=== PATIENT | male | born 1930 | race Caucasian/White ===

== ENCOUNTER 2018-07-02 11:07 | Inpatient (IN) | payer MEDICARE ==
[2018-07-02] MEDS ORDERED: PROPOFOL 200 MG/20 ML VIAL ONE (11:35)
[2018-07-02] MEDS ORDERED: Dexamethasone 20 MG/5 ML VIAL ONE (11:35)
[2018-07-02] MEDS ORDERED: Ondansetron HCl/PF 4 MG/2 ML Vial ONE (11:35)
[2018-07-02] MEDS ORDERED: PHENYLEPHRINE-NS 100 MCG/ML 10 ML SYRINGE ONE (11:35)
[2018-07-02] MEDS ORDERED: ePHEDrine/0.9% NaCl/PF SYRINGE 50 mg/10 ml ONE (11:35)
[2018-07-02] MEDS ORDERED: Vecuronium 10 MG VIAL ONE (11:35)
[2018-07-02] MEDS ORDERED: Heparin 10,000 UNITS/ 10 ML VIAL ONE (11:35)
[2018-07-02] MEDS ORDERED: Glycopyrrolate 0.2 MG/ML 5 ML SYRINGE ONE (11:35)
[2018-07-02] MEDS ORDERED: Lidocaine 1% PF 5 ML VIAL ONE (11:35)
[2018-07-02] MEDS ORDERED: Fentanyl 100 MCG/2 ML VIAL ONE ×3 (12:17→14:13)
[2018-07-02 12:45] LABS: INR-International Normal Ratio 1.3; PTT 35.2 SEC (22.9-36.1); Prothrombin Time 15.9 SEC (12.0-14.7)
[2018-07-02 13:02] LABS: Hemoglobin 11.8 g/dL (14.0-18.0); Mean Corpuscular HGB CONC 32.9 g/dL (32.0-36.0); Mean Corpuscular Hemoglobin 39.3 pg (27.0-31.0); Mean Platelet Volume 8.1 fL (7.4-10.4); Platelet Count 296 thou/uL (130-400); RBC Distribution Width 13.3 % (11.5-14.5); Red Blood Cell (RBC) Count 3.01 mill/uL (4.70-6.10); White Blood Cell (WBC) Count 17.7 thou/uL (4.8-10.8)
[2018-07-02 13:03] LABS: Band 8 % (5-11); Eosinophils 1 % (0-10); Lymphocytes 6 % (21-51); MDiff Complete? YES; Macrocytosis MODERATE=16-30 cells (100X) (0-5/hpf); Monocytes 5 % (0-10); Neutrophil 77 % (42-75); PLT Morphology Comment Appears Adequate; Reactive Lymphocytes 2 % (0-10)
--- NOTE | 2018-07-02 13:52 | CON ---
DATE OF CONSULTATION: 07/02/2018 PRIMARY CARE PHYSICIAN: Dr. Blackman at the [facility]. REASON FOR ADMISSION: Transfer from [facility] for hand trauma. PRIMARY ATTENDING: Dr. Yusuf. REASON FOR CONSULT: Medical comanagement. HISTORY OF PRESENT ILLNESS: An 88-year-old male who has underlying history of hypertension, diabetes type 2, dyslipidemia as well as history of hematological malignancy, who initially went to [facility] after left hand injury. The patient got palmar aspect of all 5 left fingers (00:00). Subsequently, he was having significant amount of bleed, intensity of pain was about 8/10 when it started and subsequently he was having a lot of pain. The pain was constant and he was bleeding from volar surface of the hand. The patient was evaluated at [facility] and subsequently he was transferred to our hospital for surgical treatment. Dr. Yusuf accepted this patient and the patient is going to go for surgery and in preoperative area , we were consulted for medical management. surveillance system monitor was showing sinus bradycardia with normal rhythm. He did not have any chest pain, palpitation, shortness of breath. His pain was well controlled. His blood pressure was also well controlled. The patient's was present at bedside and his left hand is completely covered with a dressing. REVIEW OF SYSTEMS: Please see my HPI for pertinent positive and negative. All other review of system reviewed and negative except as mentioned in the HPI. Constitutional: Weight loss or gain, ability to conduct usual activities. Skin: Rash, itching. Eyes: Double vision, pain. ENT/Mouth: Nose bleeding, neck stiffness, pain, tenderness. Cardiovascular: Palpitations, dyspnea on exertion, orthopnea. Respiratory: Shortness of breath, wheezing, cough, hemoptysis, fever or night sweats. Gastrointestinal: Poor appetite, abdominal pain, heartburn, nausea, vomiting, constipation, or diarrhea. Genitourinary: Urgency, frequency, dysuria, nocturia. Musculoskeletal: Pain, swelling. Neurologic/Psychiatric: Anxiety, depression. Allergy/Immunologic: Skin rash, bleeding tendency. PAST MEDICAL HISTORY: The patient reports that he has hematological malignancy under remission, non-insulin dependent diabetes mellitus, sleep apnea, hypertension, benign enlargement of prostate, ? multiple myeloma. PAST SURGICAL HISTORY: Bilateral cataract surgery. PAST PSYCHIATRIC HISTORY: Reviewed and negative. ALLERGIES: PENICILLIN G. CURRENT HOME MEDICATIONS: The patient did not bring his medication. He brought pill bottle container so unable to verify his home medication, but we are going to call Dr. Blackman at the [place] [facility] to get the patient's medication list and will review. Once we verify the patient's home medication, then we will resume selected home medication. As per patient's remembrance, the patient is taking Proscar, tramadol, hydroxyurea, etc., but detailed list is not available at this point. SOCIAL HISTORY: The patient is . He denies any tobacco, alcohol or illicit drug abuse. FAMILY HISTORY: No strong family history of premature coronary artery disease, stroke or cancer. EMERGENCY ROOM COURSE: The patient was given gentamicin 80 mg and Ancef 1 gram , Tetanus toxoid 0.5 mL IM, fentanyl 50 mcg at [facility]. PHYSICAL EXAMINATION: VITAL SIGNS: Currently, blood pressure 149/62, pulse 64, respiratory rate 18, temperature 98.6, saturation 95% on room air, weight 104.3 kilograms. GENERAL: The patient is currently alert, awake, no obvious acute distress. HEAD: Normocephalic, atraumatic. EYES: Pupils round, reactive to light. Extraocular muscle intact. ENT: Oropharynx within normal limits. Moist mucous membranes. No oral lesion , no pharyngeal erythema, no exudate. NECK: Supple, no JVD, no thyromegaly, no carotid bruit, no jugular venous distention. LUNGS: Clear to auscultation without any rhonchi or rales. CARDIAC: S1, S2 regular without any murmur. ABDOMEN: Soft, bowel sounds present, nontender, nondistended. No organomegaly , no mass, no suprapubic tenderness. BACK: Unremarkable, no CVA tenderness. EXTREMITIES: Upper extremity: Left hand is covered with a dressing. As per report, the patient has laceration and palmar aspect of all 5 fingers. Capillary refill greater than 2 seconds on the left side as per ER report. I could not examine her left because the patient's left hand is completely covered with a dressing. Right hand is within normal limits. Lower extremity within normal limits. No edema. Good distal pulsation. SKIN: No skin rash. HEMATOLOGICAL: No lymphadenopathy. PSYCHIATRIC: Normal affect. NEUROLOGIC: Nonfocal examination. SIGNIFICANT LABORATORY DATA: CBC: WBC 17.7, hemoglobin 11.8, platelet 296, MCV 120.0 with bandemia. INR 1.3. BMP: Sodium 140, potassium 4.5, chloride 107, carbon dioxide 23, anion gap 15, BUN 21, creatinine 1.27, calcium 9.1. ASSESSMENT AND PLAN: 1. Left hand injury after trauma with a table saw. The patient is admitted under hand surgeon. The patient is planned for surgery later on today. 2. Preoperative clearance. The patient is medically cleared for surgery. The patient does not have any angina. His electrocardiogram is in sinus rhythm. His blood pressure is acceptable. His lung examination and his exercise tolerance is within normal limits. The patient is medically clear for surgery. 3. History of hematological malignancy under remission with ? history of multiple myeloma. 4. Microcytic anemia, likely related with hydroxyurea. 5. Leukocytosis with bandemia, likely related with hand injury. 6. Diabetes type 2. 7. Hypertension. 8. Dyslipidemia. 9. Benign enlargement of prostate. PLAN: 1. The patient will be will be admitted under Dr. Paramjit Aguirre. The patient is planned for surgery later on today. The patient is medically cleared for surgery. We will verify the patient's home medication with primary care physician's office and we will start selected home medication. Hyperglycemia protocol treatment will be initiated. We will use p.r.n. basis blood pressure medication as well. We will repeat labs tomorrow. His pain will be controlled with pain medication with narcotics. We will add folic acid and vitamin B12 therapy on his regimen. 2. Deep venous thrombosis prophylaxis. SCD boots. No Lovenox because of bleeding from the hand after injury. 3. Gastrointestinal prophylaxis, Protonix 40 mg p.o. daily. CODE STATUS: The patient is FULL CODE. The patient's is surrogate decision maker. Disposition plan based on clinical course. We are expecting patient's stay in hospital more than 2 midnights. After surgery, the patient will need pain control and wound care. YUE
[2018-07-02 14:02] LABS: Anion Gap 7 mmol/L (10-20); BUN (Urea Nitrogen) 21 mg/dL (8.4-25.7); Calc. Creatinine Clearance 0 mL/min (70-130); Calcium 7.9 mg/dL (7.8-10.44); Carbon Dioxide 25 mmol/L (23-31); Chloride 108 mmol/L (98-107); Estimated GFR-MDRD 57; Glucose 204 mg/dL (83-110); Potassium 4.8 mmol/L (3.5-5.1); Sodium 135 mmol/L (136-145)
[2018-07-02] MEDS ORDERED: Midazolam HCl 2 mg/2 ml Vial ONE (14:08)
[2018-07-02] MEDS ORDERED: Bacitracin Zinc Ointment 30 gm TUBE ONE (14:10)
[2018-07-02] MEDS ORDERED: Hetastarch 6% 500 ML 500 ML ONE (14:10)
[2018-07-02] MEDS ORDERED: Lidocaine 2% 10 ML INJ ONE ×2 (14:10→14:18)
[2018-07-02] MEDS ORDERED: Thrombin 5000 UNITS/5 ML VIAL ONE (14:10)
[2018-07-02] MEDS ORDERED: Bupivacaine PF 0.5% 30 ML VIAL ONE (14:10)
[2018-07-02] MEDS ORDERED: Ropivacaine 0.2% HCl/PF 20 ML ONE (14:10)
[2018-07-02] MEDS ORDERED: Heparin 10,000 UNITS/1 ML VIAL ONE ×2 (14:12→20:12)
[2018-07-02] MEDS ORDERED: Lidocaine 1% (PF) 30 ML VIAL ONE (14:18)
[2018-07-02] MEDS ORDERED: Sodium Chloride 0.9% 0 ML ONE (14:20)
[2018-07-02 14:36] LABS: Hemoglobin 11.2 g/dL (14.0-18.0); Mean Corpuscular HGB CONC 33.9 g/dL (32.0-36.0); Mean Corpuscular Hemoglobin 40.4 pg (27.0-31.0); Mean Platelet Volume 7.7 fL (7.4-10.4); Platelet Count 302 thou/uL (130-400); RBC Distribution Width 13.1 % (11.5-14.5); Red Blood Cell (RBC) Count 2.76 mill/uL (4.70-6.10); White Blood Cell (WBC) Count 18.7 thou/uL (4.8-10.8)
[2018-07-02] MEDS ORDERED: Sodium Chloride 0.9% 50 ML ONE (14:49)
[2018-07-02] MEDS ORDERED: Phenylephrine HCL 10 MG/ML VIAL ONE ×2 (15:02→21:59)
[2018-07-02] MEDS ORDERED: Heparin 25,000 units/D5W 500 ML ONE (17:38)
[2018-07-03] MEDS ORDERED: Fentanyl 100 MCG/2 ML VIAL SLOW IVP PRN (00:12)
[2018-07-03] MEDS ORDERED: Promethazine HCl 25 MG/ML VIAL IM PRN (00:12)
[2018-07-03] MEDS ORDERED: Milk Of Magnesia 30 ML UDCUP PO PRN ×2 (00:12→00:58)
[2018-07-03] MEDS ORDERED: Ondansetron HCl/PF 4 MG/2 ML Vial IV PRN (00:12)
[2018-07-03] MEDS ORDERED: traMADol HCl 50 MG TAB PO PRN (00:12)
[2018-07-03] MEDS ORDERED: Acetaminophen 325 MG TAB PO PRN ×2 (00:12→00:58)
[2018-07-03] MEDS ORDERED: HYDROcodone/Acetaminophen 5/325 mg Tablet PO PRN (00:12)
[2018-07-03] MEDS ORDERED: Communication Order-Pharmacy FS SCH (00:15)
[2018-07-03] MEDS ORDERED: TETANUS AND DIPHTHERIA TOX/PF 0.5 ML DISP.SYRIN IM SCH (00:15)
[2018-07-03 00:49] LABS: Mean Corpuscular HGB CONC 33.6 g/dL (32.0-36.0); Mean Corpuscular Hemoglobin 37.8 pg (27.0-31.0); Mean Platelet Volume 7.9 fL (7.4-10.4); Platelet Count 330 thou/uL (130-400); RBC Distribution Width 20.1 % (11.5-14.5); Red Blood Cell (RBC) Count 2.64 mill/uL (4.70-6.10)
[2018-07-03] MEDS ORDERED: Artificial Tears 18 DROP/0.9 ML EA EYE PRN (00:58)
[2018-07-03] MEDS ORDERED: Chloraseptic Spray 180 ml Bottle PO PRN (00:58)
[2018-07-03] MEDS ORDERED: Hydrocerin (Eucerin) Cream 120 gm Jar TOP PRN (00:58)
[2018-07-03] MEDS ORDERED: Diabetic Tussin 200 MG/10 ML UDCUP PO PRN (00:58)
[2018-07-03] MEDS ORDERED: Ondansetron HCl/PF 4 MG/2 ML Vial IVP PRN (00:58)
[2018-07-03] MEDS ORDERED: Ondansetron ODT 4 MG TAB PO PRN (00:58)
[2018-07-03] MEDS ORDERED: Loratadine 10 MG TAB PO PRN (00:58)
[2018-07-03] MEDS ORDERED: Dextrose 50% Abboject 50 ML SYRINGE SLOW IVP PRN (00:58)
[2018-07-03] MEDS ORDERED: Mag-Al 1200 mg/1200 mg/30 ML UDCUP PO PRN (00:58)
[2018-07-03] MEDS ORDERED: Loperamide HCl 2 MG CAP PO PRN (00:58)
[2018-07-03] MEDS ORDERED: Sodium Chloride 0.65% Nasal 44 ML BOT EA NARE PRN (00:58)
[2018-07-03] MEDS ORDERED: Senokot 8.6 MG TAB PO PRN (00:58)
[2018-07-03] MEDS ORDERED: hydrALAZINE 20 MG/ML VIAL SLOW IVP PRN (00:58)
[2018-07-03] MEDS ORDERED: Dextrose 5% in Water 1,000 ML IV PRN (00:58)
[2018-07-03] MEDS ORDERED: HumaLOG 300 UNITS/3 ML VIAL SC PRN (00:58)
[2018-07-03] MEDS ORDERED: Zolpidem Tartrate 5 MG TAB PO PRN (00:58)
[2018-07-03] MEDS: Clindamycin/D5W 900 MG in Premix Bag 1 BAG IVPB SCH ×3 (01:00→16:51)
[2018-07-03 01:08] LABS: Band 16 % (5-11); Lymphocytes 3 % (21-51); MDiff Complete? YES; Monocytes 3 % (0-10); Neutrophil 78 % (42-75)
[2018-07-03 01:14] VITALS: BMI 27.8
[2018-07-03] MEDS ORDERED: Famotidine 20 MG TAB PO SCH (01:15)
[2018-07-03] MEDS ORDERED: Heparin 25,000 units/D5W 500 ML IVPB SCH (04:00)
[2018-07-03] MEDS ORDERED: Sodium Chloride 0.9% 500 ML IV SCH (04:00)
[2018-07-03] MEDS: HumaLOG 300 UNITS/3 ML VIAL SC PRN ×2 (04:35→16:51)
[2018-07-03 04:52] LABS: ALT (SGPT) 9 U/L (8-55); AST (SGOT) 13 U/L (5-34); Albumin 2.7 g/dL (3.4-4.8); Alkaline Phosphatase 38 U/L (40-150); Anion Gap 13 mmol/L (10-20); BUN (Urea Nitrogen) 22 mg/dL (8.4-25.7); Bilirubin, Total 0.7 mg/dL (0.2-1.2); Calc. Creatinine Clearance 57 mL/min (70-130); Calcium 7.3 mg/dL (7.8-10.44); Carbon Dioxide 19 mmol/L (23-31); Chloride 111 mmol/L (98-107); Estimated GFR-MDRD 54; Globulin 1.6 g/dL (2.4-3.5); Glucose 201 mg/dL (83-110); Potassium 4.8 mmol/L (3.5-5.1); Protein, Total 4.3 g/dL (5.8-8.1); Sodium 138 mmol/L (136-145)
[2018-07-03 04:57] LABS: Band 9 % (5-11); Hemoglobin 9.2 g/dL (14.0-18.0); MDiff Complete? YES; Mean Corpuscular HGB CONC 33.9 g/dL (32.0-36.0); Mean Corpuscular Hemoglobin 38.1 pg (27.0-31.0); Mean Platelet Volume 7.8 fL (7.4-10.4); Monocytes 2 % (0-10); Neutrophil 89 % (42-75); Platelet Count 277 thou/uL (130-400); RBC Distribution Width 19.9 % (11.5-14.5)
[2018-07-03] MEDS ORDERED: Prevnar 13-Val Conj/PF 0.5 ML SYRINGE IM ONE (09:00)
[2018-07-03] MEDS: Aspirin 81 mg Enteric Coated Tablet PO SCH ×2 (10:02→20:27)
[2018-07-03] MEDS: Folic Acid 1 MG TAB PO SCH (10:03)
[2018-07-03] MEDS: Cyanocobalamin (Vitamin B-12) 1,000 MCG TAB PO SCH (10:04)
[2018-07-03] MEDS: Famotidine 20 MG TAB PO SCH ×2 (10:04→20:27)
--- NOTE | 2018-07-03 11:25 | PDOC.PN ---
- Subjective Encounter Start Date: 07/03/18 Encounter Start Time: 10:15 -: old records requested/rev Patient seen and examined. No new complaints. No overnight events pt is in ccu and getting heparin drip, vitals stable - Objective Resuscitation Status: Resuscitation Status FULL:Full Resuscitation MAR Reviewed: Yes Vital Signs & Weight: Vital Signs (12 hours) Temp Pulse Resp BP Pulse Ox 07/03/18 08:55 98 07/03/18 07:34 98.7 F 59 L 16 100 07/03/18 07:00 98.7 F 59 L 16 119/64 07/03/18 04:00 98.7 F 95 07/03/18 02:00 62 13 143/44 H 07/03/18 00:35 98.3 F 67 15 100 07/03/18 00:30 98.3 F 65 16 120/43 L 100 07/03/18 00:12 98 Weight Weight 211 lb 3.245 oz Most Recent Monitor Data Heart Rate from ECG 64 NIBP 100/39 NIBP BP-Mean 54 Respiration from ECG 23 SpO2 98 I&O: 07/02/18 07/03/18 07/04/18 06:59 06:59 06:59 Intake Total 734 310 Output Total 300 125 Balance 434 185 Result Diagrams: 07/03/18 04:00 07/03/18 03:30 Additional Labs: Accuchecks 07/03/18 04:21 POC Glucose 194 H EKG Reviewed by me: Yes (nsr) Phys Exam - Physical Examination Constitutional: NAD HEENT: PERRLA, moist MMs, sclera anicteric Neck: no JVD, supple Respiratory: no wheezing, no rales, no rhonchi Cardiovascular: RRR, no significant murmur, no rub Gastrointestinal: soft, non-tender, no distention, positive bowel sounds Musculoskeletal: no edema, pulses present left hand with dressing Neurological: non-focal, normal sensation, moves all 4 limbs Psychiatric: normal affect, A&O x 3 Skin: no rash, normal turgor Dx/Plan (1) Laceration of finger of left hand with complication Code(s): S61.412A - LACERATION WITHOUT FOREIGN BODY OF LEFT HAND, INIT ENCNTR Status: Acute (2) Hypoalbuminemia Code(s): E88.09 - OTH DISORDERS OF PLASMA-PROTEIN METABOLISM, NEC Status: Acute (3) Leucocytosis Code(s): D72.829 - ELEVATED WHITE BLOOD CELL COUNT, UNSPECIFIED Status: Acute (4) BPH (benign prostatic hyperplasia) Code(s): N40.0 - BENIGN PROSTATIC HYPERPLASIA WITHOUT LOWER URINRY TRACT SYMP Status: Chronic (5) Diabetes type 2, controlled Code(s): E11.9 - TYPE 2 DIABETES MELLITUS WITHOUT COMPLICATIONS Status: Chronic (6) Dyslipidemia Code(s): E78.5 - HYPERLIPIDEMIA, UNSPECIFIED Status: Chronic (7) Hypertension Code(s): I10 - ESSENTIAL (PRIMARY) HYPERTENSION Status: Chronic (8) Macrocytic anemia Code(s): D53.9 - NUTRITIONAL ANEMIA, UNSPECIFIED Status: Chronic - Plan cont current plan of care, continue antibiotics * continue clindamycin * continue heparin drip * once we verify his home medication, we will resume selected home meds * medication reviewed as below * symptomatic treatment * surgical care as per hand surgeon. Review of Systems - Review of Systems Eyes: negative: Pain, Vision Change, Conjunctivae Inflammation, Eyelid Inflammation, Redness, Other ENT: negative: Ear Pain, Ear Discharge, Nose Pain, Nose Discharge, Nose Congestion, Mouth Pain, Mouth Swelling, Throat Pain, Throat Swelling, Other Respiratory: negative: Cough, Dry, Shortness of Breath, Hemoptysis, SOB with Excertion, Pleuritic Pain, Sputum, Wheezing Cardiovascular: negative: chest pain, palpitations, orthopnea, paroxysmal nocturnal dyspnea, edema, light headedness, other Gastrointestinal: negative: Nausea, Vomiting, Abdominal Pain, Diarrhea, Constipation, Melena, Hematochezia, Other Genitourinary: negative: Dysuria, Frequency, Incontinence, Hematuria, Retention , Other Musculoskeletal: negative: Neck Pain, Shoulder Pain, Arm Pain, Back Pain, Hand Pain, Leg Pain, Foot Pain, Other Skin: negative: Rash, Lesions, Branden, Bruising, Other - Medications/Allergies Allergies/Adverse Reactions: Allergies Allergy/AdvReac Type Severity Reaction Status Date / Time penicillin G Allergy Intermediate Rash Verified 07/03/18 01:19 Medications: Current Medications Acetaminophen (Tylenol) 650 mg PO Q4H PRN PRN Reason: Headache/Fever or Pain Hydrocodone Bitart/Acetaminophen (Russell 5/325) 1 tab PO Q4H PRN PRN Reason: Moderate Pain (4-6) Al Hydroxide/Mg Hydroxide (Maalox) 30 ml PO Q6H PRN PRN Reason: Heartburn or Indigestion Artificial Tears (Tears Naturale) 0 drop EA EYE PRN PRN PRN Reason: Dry Eyes Aspirin (Ecotrin) 81 mg PO BID [facility] Last Admin: 07/03/18 10:02 Dose: 81 mg Cyanocobalamin (Vitamin B-12) 1,000 mcg PO DAILY [facility] Last Admin: 07/03/18 10:04 Dose: 1,000 mcg Dextrose/Water (Dextrose 50%) 25 gm SLOW IVP PRN PRN PRN Reason: Hypoglycemia Emollient Cream (Hydrocerin Cream) 0 gm TOP BIDPRN PRN PRN Reason: Dry Skin Famotidine (Pepcid) 20 mg PO BID [facility] Last Admin: 07/03/18 10:04 Dose: 20 mg Fentanyl (Sublimaze) 50 mcg SLOW IVP Q30M PRN PRN Reason: Severe breakthrough pain Folic Acid (Folvite) 1 mg PO DAILY [facility] Last Admin: 07/03/18 10:03 Dose: 1 mg Glucagon (Glucagon) 1 mg IM PRN PRN PRN Reason: Hypoglycemia Guaifenesin (Robitussin Sf) 200 mg PO Q4H PRN PRN Reason: Cough Hydralazine HCl (Apresoline) 10 mg SLOW IVP Q4H PRN PRN Reason: Systolic BP > 180 Clindamycin Phosphate/Dextrose (900 mg/ Device) 50 mls @ 100 mls/hr IVPB 0100, 0900,1700 [facility] Stop: 07/05/18 01:01 Last Admin: 07/03/18 10:02 Dose: 50 mls Hetastarch/Sodium Chloride (Hespan) 500 mls @ 30 mls/hr IVPB INF [facility] Dextrose/Water (D5w) 1,000 mls @ 0 mls/hr IV .Q0M PRN PRN Reason: Hypoglycemia Sodium Chloride (Normal Saline 0.9%) 500 mls @ 0 mls/hr IV .Q0M CASE Heparin Sodium/Dextrose (Heparin 25,000 Units/D5w 500 Ml) 500 mls @ 4 mls/hr IVPB [facility]F [facility] Insulin Human Lispro (Humalog) 0 units SC .MODERATE SLIDING SC PRN PRN Reason: Moderate Correctional Scale Last Admin: 07/03/18 04:35 Dose: 2 unit Insulin Human Lispro (Humalog) 0 units SC .BEDTIME SLIDING SC PRN PRN Reason: Bedtime Correctional Scale Loperamide HCl (Imodium) 2 mg PO PRN PRN PRN Reason: Diarrhea/Loose Stools Loratadine (Claritin) 10 mg PO DAILYPRN PRN PRN Reason: Sinus Symptoms Magnesium Hydroxide (Milk Of Magnesium) 30 ml PO DAILYPRN PRN PRN Reason: Constipation Morphine Sulfate (Morphine) 2 mg SLOW IVP Q2H PRN PRN Reason: Moderate Pain (4-6) Ondansetron HCl (Zofran Odt) 4 mg PO Q6H PRN PRN Reason: Nausea/Vomiting Ondansetron HCl (Zofran) 4 mg IVP Q6H PRN PRN Reason: Nausea/Vomiting Phenol (Chloraseptic [place] 180 Ml Bot) 0 ml PO PRN PRN PRN Reason: Sore Throat Promethazine HCl (Phenergan) 12.5 mg IM Q4H PRN PRN Reason: Nausea Senna (Senokot) 2 tab PO HSPRN PRN PRN Reason: Constipation Sodium Chloride (Flush - Normal Saline) 10 ml IVF PRN PRN PRN Reason: Saline Flush Sodium Chloride ([place] Nasal [place] 0.65%) 0 ml EA NARE QIDPRN PRN PRN Reason: Nasal Congestion Tramadol HCl (Ultram) 50 mg PO Q6H PRN PRN Reason: Mild Pain (1-3) Zolpidem Tartrate (Ambien) 5 mg PO HSPRN PRN PRN Reason: Insomnia
[2018-07-03] MEDS: Hetastarch 6% 500 ML 500 ML IVPB SCH ×2 (11:39→21:14)
[2018-07-03] MEDS ORDERED: Digoxin 0.5 MG/2 ML AMP ONE (14:14)
[2018-07-03] MEDS ORDERED: Digoxin 0.5 MG/2 ML AMP SLOW IVP SCH (14:15)
--- NOTE | 2018-07-03 15:41 | PRG ---
DATE OF SERVICE: 07/03/2018 SUBJECTIVE: The patient is seen and examined at bedside. Patient has narrow complex supraventricula r tachycardia. Patient is asymptomatic. He is saturating normal. His blood pressure systolic, 75 s ystolic. He is given digoxin earlier and repeat digoxin loading dose is also ordered. His cardiac e xamination is unremarkable. If this patient does not recover with digoxin, then he will need discont inue cardioversion. Dr. Smith notified. He may need electrophysiologic evaluation when stable. We will check TSH, free T4, cardiac enzyme and BNP tomorrow with morning labs.
[2018-07-03] MEDS ORDERED: Amiodarone In Dextrose 200 ML IVPB SCH (16:00)
[2018-07-03] MEDS: Amiodarone HCl 450 MG, Admixture Fee 1 EACH in Dextrose 5% in Water 250 ML IVPB SCH (16:16)
--- NOTE | 2018-07-03 16:33 | CON ---
DATE OF CONSULTATION: 07/03/2018 REASON FOR CONSULTATION: SVT. HISTORY OF PRESENT ILLNESS: Mr. Garrett is a pleasant 88-year-old white gentleman who came to the [facility] for hand injury. He was taken to the OR by Dr. Yusuf with good results and he is in the ICU right now recuperating. He had a sinus bradycardia on admission, but recently he suddenly went into an SVT, heart rate in the 150s. He has remained there, blood pressure dropped a little bit to the 9 0s/40s when that happened. He feels well otherwise. He denies any palpitations. No chest pain, tig htness, pressure, no shortness of breath. PAST MEDICAL HISTORY: 1. Multiple myeloma. 2. Noninsulin dependent diabetes. 3. Sleep apnea. 4. Hypertension. 5. BPH. PAST SURGICAL HISTORY: 1. Bilateral cataract surgery. 2. Hand surgery yesterday. OUTPATIENT MEDICATIONS: Pending. He will bring the list of medications and we will consolidate. ALLERGIES: PENICILLIN. SOCIAL HISTORY: No alcohol, tobacco or drugs. FAMILY HISTORY: Noncontributory. REVIEW OF SYSTEMS: Twelve point review of systems is done and it is all negative except as stated in the history of present illness. PHYSICAL EXAMINATION: VITAL SIGNS: Temperature 98.6, pulse 59, respiratory rate 18, satting 100% on room air. GENERAL: Awake, alert, oriented x3, in no distress. HEENT: Normocephalic. NECK: Supple. LUNGS: Clear. CARDIOVASCULAR: Tachycardic in the 150s, but normal S1, S2, no S3, S4, no murmurs. ABDOMEN: Soft, positive bowel sounds. EXTREMITIES: No edema. Left hand is wrapped up to the elbow. SKIN: Warm and dry. LABORATORY WORK: Reviewed. White count 23, hemoglobin 9.2, hematocrit 27, platelet count of 277. C oags were unremarkable. Chemistries were unremarkable except for calcium 7.3, albumin of 2.7, normal sodium and potassium. 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 ST changes suggestive of ischemia during his tachycardia. ASSESSMENT AND PLAN: Supraventricular tachycardia: He actually broke back to sinus rhythm when I wa s in the room with him. His blood pressure went nicely from 90s/40s, up to the 120s/60s when he was back in sinus rhythm. We will plan on starting on amiodarone drip and will hopefully to prevent him from going back into any supraventricular tachycardia. This could also be due to atrial flutter, but I do not see flutter waves on EKG. We will get thyroid studies. We will make sure he is on a beta levar. We will wait for his home medication before this happens as his baseline EKG on arrival. Nicolette carmichael was quite bradycardic in the 40s. Currently, he is sinus rhythm in the 90s. Thank you for letting us to participate in the care of your patient. We will follow.
[2018-07-03] MEDS: HYDROcodone/Acetaminophen 5/325 mg Tablet PO PRN (23:41)
--- NOTE | 2018-07-04 00:12 | CON ---
DATE OF CONSULTATION: 07/03/2018 HISTORY OF PRESENT ILLNESS: This is a pleasant 88-year-old male who cut his hand with a table saw. This has been surgically repaired. It was his left hand but got upon move all of his fingers. He subsequently was admitted to the intensive care unit. He is now on the Trauma Service. I was asked to see him, because his presence in the ICU. He developed supraventricular rhythm disturbance today has been seen by Dr. Smith. I was consulted the same time, he developed his tachycardia. PAST MEDICAL/SURGICAL HISTORY: Remarkable for diabetes, sleep apnea, hypertension, ? multiple myeloma, cataract surgery, BPH. ALLERGIES: PENICILLIN. SOCIAL HISTORY: He does not use tobacco, alcohol, or drugs. FAMILY HISTORY: Negative for lung disease in early age. REVIEW OF SYSTEMS: 10 point system review completed; otherwise negative that was stated in the present illness. He has minimal hand pain surprisingly. PHYSICAL EXAMINATION: GENERAL: This is a pleasant 88-year-old male who cut his hand with a table saw. VITAL SIGNS: Blood pressure 113/45, heart rate 66, respiratory rate 22, oximetry is 92. HEENT: Pupils are equal. Sclerae is anicteric. NECK: Supple. LUNGS: Clear. HEART: Regular rate and rhythm. S1 and S2 are normal. ABDOMEN: Soft and nontender. EXTREMITIES: Without clubbing, cyanosis, or edema. The licensed master social worker arrived to evaluate him, he will back into sinus rhythm. LABORATORY DATA: White count is 23, hemoglobin 9.2, platelets 277. Sodium 138 , potassium 4.8, chloride 111, bicarbonate 19, BUN 22, creatinine 1.27, alkaline phosphatase 38, protein 4.3, albumin 2.7, glucose 194. IMPRESSION: 1. Status post large laceration to his hand, now surgically repaired 2. Multiple other medical problems, which are stable. PLAN: Transfer out of the critical care unit to telemetry bed is reasonable. This is a 70-minute consult with greater than 50% of the time spent on unit coordinating care. YUE
[2018-07-04] MEDS: Amiodarone HCl 450 MG, Admixture Fee 1 EACH in Dextrose 5% in Water 250 ML IVPB SCH (01:49)
[2018-07-04] MEDS: Clindamycin/D5W 900 MG in Premix Bag 1 BAG IVPB SCH ×4 (01:49→23:39)
[2018-07-04 04:59] LABS: CKMB 3.7 ng/mL (0-6.6); Troponin I 0.039 ng/mL (< 0.028)
[2018-07-04 05:13] LABS: Thyroid Stimulating Hormone 1.141 uIU/mL (0.35-4.94)
[2018-07-04 05:36] LABS: Free T4 (Free Thyroxine) 0.86 ng/dL (0.70-1.48)
[2018-07-04] MEDS ORDERED: Simethicone Chewable 80 MG TAB PO PRN (06:53)
[2018-07-04] MEDS ORDERED: traMADol HCl 50 MG TAB PO PRN (06:53)
[2018-07-04] MEDS: Hetastarch 6% 500 ML 500 ML IVPB SCH ×2 (06:56→23:39)
[2018-07-04] MEDS ORDERED: Fluticasone Propionate Nasal Spray 16 gm Bottle NASAL SCH (07:45)
--- NOTE | 2018-07-04 09:46 | PDOC.PN ---
- Subjective Encounter Start Date: 07/04/18 Encounter Start Time: 08:30 pt is doing well, he is on amiodaron drip, he is converted to NSR - Objective Resuscitation Status: Resuscitation Status FULL:Full Resuscitation MAR Reviewed: Yes Vital Signs & Weight: Vital Signs (12 hours) Temp Pulse Ox 07/04/18 07:00 98.2 F 07/04/18 06:15 95 07/04/18 04:00 98.4 F 95 07/04/18 00:00 98.3 F Weight Weight 211 lb 3.245 oz Most Recent Monitor Data Heart Rate from ECG 64 NIBP 110/48 NIBP BP-Mean 91 Respiration from ECG 21 SpO2 85 I&O: 07/03/18 07/04/18 07/05/18 06:59 06:59 06:59 Intake Total 734 3645 Output Total 300 2080 55 Balance 434 1565 -55 Result Diagrams: 07/03/18 04:00 07/03/18 03:30 Additional Labs: Accuchecks 07/04/18 07/03/18 07/03/18 06:18 20:33 16:48 POC Glucose 144 H 123 H 154 H 07/03/18 11:37 POC Glucose 122 H EKG Reviewed by me: Yes (nsr) Phys Exam - Physical Examination Constitutional: NAD HEENT: PERRLA, moist MMs, sclera anicteric Neck: no JVD, supple Respiratory: no wheezing, no rales, no rhonchi Cardiovascular: RRR, no significant murmur, no rub Gastrointestinal: soft, non-tender, no distention, positive bowel sounds Musculoskeletal: no edema, pulses present left upper extrimity with dressing Neurological: non-focal, normal sensation, moves all 4 limbs Psychiatric: normal affect, A&O x 3 Skin: no rash, normal turgor Dx/Plan (1) Laceration of finger of left hand with complication Code(s): S61.412A - LACERATION WITHOUT FOREIGN BODY OF LEFT HAND, INIT ENCNTR Status: Acute Comment: s/p surgical repair (2) Hypoalbuminemia Code(s): E88.09 - OTH DISORDERS OF PLASMA-PROTEIN METABOLISM, NEC Status: Acute (3) Leucocytosis Code(s): D72.829 - ELEVATED WHITE BLOOD CELL COUNT, UNSPECIFIED Status: Acute (4) BPH (benign prostatic hyperplasia) Code(s): N40.0 - BENIGN PROSTATIC HYPERPLASIA WITHOUT LOWER URINRY TRACT SYMP Status: Chronic (5) Diabetes type 2, controlled Code(s): E11.9 - TYPE 2 DIABETES MELLITUS WITHOUT COMPLICATIONS Status: Chronic (6) Dyslipidemia Code(s): E78.5 - HYPERLIPIDEMIA, UNSPECIFIED Status: Chronic (7) Hypertension Code(s): I10 - ESSENTIAL (PRIMARY) HYPERTENSION Status: Chronic (8) Macrocytic anemia Code(s): D53.9 - NUTRITIONAL ANEMIA, UNSPECIFIED Status: Chronic (9) Demand ischemia Code(s): I24.8 - OTHER FORMS OF ACUTE ISCHEMIC HEART DISEASE Status: Acute (10) Elevated brain natriuretic peptide (BNP) level Code(s): R79.89 - OTHER SPECIFIED ABNORMAL FINDINGS OF BLOOD CHEMISTRY Status : Acute (11) SVT (supraventricular tachycardia) Code(s): I47.1 - SUPRAVENTRICULAR TACHYCARDIA Status: Resolved - Plan cont current plan of care, plan discussed w/ family, continue antibiotics * continue antibiotics as per surgeon * post operative pain control * currently on amiodaron drip as per cardio, may be we can start BB and dc amiodaron drip * will get echo today * medication reviewed as below * symptomatic treatment * discussed with * will start his selected home medication. Review of Systems - Review of Systems Eyes: negative: Pain, Vision Change, Conjunctivae Inflammation, Eyelid Inflammation, Redness, Other ENT: negative: Ear Pain, Ear Discharge, Nose Pain, Nose Discharge, Nose Congestion, Mouth Pain, Mouth Swelling, Throat Pain, Throat Swelling, Other Respiratory: negative: Cough, Dry, Shortness of Breath, Hemoptysis, SOB with Excertion, Pleuritic Pain, Sputum, Wheezing Cardiovascular: negative: chest pain, palpitations, orthopnea, paroxysmal nocturnal dyspnea, edema, light headedness, other Gastrointestinal: negative: Nausea, Vomiting, Abdominal Pain, Diarrhea, Constipation, Melena, Hematochezia, Other Genitourinary: negative: Dysuria, Frequency, Incontinence, Hematuria, Retention , Other Musculoskeletal: Hand Pain. negative: Neck Pain, Shoulder Pain, Arm Pain, Back Pain, Leg Pain, Foot Pain, Other Skin: negative: Rash, Lesions, Branden, Bruising, Other - Medications/Allergies Allergies/Adverse Reactions: Allergies Allergy/AdvReac Type Severity Reaction Status Date / Time penicillin G Allergy Intermediate Rash Verified 07/03/18 01:19 Medications: Current Medications Acetaminophen (Tylenol) 650 mg PO Q4H PRN PRN Reason: Headache/Fever or Pain Hydrocodone Bitart/Acetaminophen ([place] 5/325) 1 tab PO Q4H PRN PRN Reason: Moderate Pain (4-6) Last Admin: 07/03/18 23:41 Dose: 1 tab Al Hydroxide/Mg Hydroxide (Maalox) 30 ml PO Q6H PRN PRN Reason: Heartburn or Indigestion Artificial Tears (Tears Naturale) 0 drop EA EYE PRN PRN PRN Reason: Dry Eyes Aspirin (Ecotrin) 81 mg PO BID [facility] Stop: 07/04/18 21:01 Last Admin: 07/03/18 20:27 Dose: 81 mg Aspirin (Ecotrin) 81 mg PO QAM [facility] Cholecalciferol (Vitamin D3) 2,000 units PO DAILY [facility] Cyanocobalamin (Vitamin B-12) 1,000 mcg PO DAILY [facility] Last Admin: 07/03/18 10:04 Dose: 1,000 mcg Dextrose/Water (Dextrose 50%) 25 gm SLOW IVP PRN PRN PRN Reason: Hypoglycemia Docusate Sodium (Colace) 100 mg PO DAILY [facility] Emollient Cream (Hydrocerin Cream) 0 gm TOP BIDPRN PRN PRN Reason: Dry Skin Famotidine (Pepcid) 20 mg PO BID [facility] Last Admin: 07/03/18 20:27 Dose: 20 mg Fentanyl (Sublimaze) 50 mcg SLOW IVP Q30M PRN PRN Reason: Severe breakthrough pain Finasteride (Proscar) 5 mg PO DAILY [facility] Fish Oil (Fish Oil) 1,000 mg PO DAILY [facility] Fluticasone Propionate (Flonase Nasal [place]) 0 gm NASAL DAILY [facility] Folic Acid (Folvite) 1 mg PO DAILY [facility] Last Admin: 07/03/18 10:03 Dose: 1 mg Furosemide (Lasix) 20 mg PO QAM [facility] Gabapentin (Neurontin) 400 mg PO DAILY [facility] Glipizide (Glucotrol Xl) 2.5 mg PO QAM[facility] Glucagon (Glucagon) 1 mg IM PRN PRN PRN Reason: Hypoglycemia Guaifenesin (Robitussin Sf) 200 mg PO Q4H PRN PRN Reason: Cough Hydralazine HCl (Apresoline) 10 mg SLOW IVP Q4H PRN PRN Reason: Systolic BP > 180 Clindamycin Phosphate/Dextrose (900 mg/ Device) 50 mls @ 100 mls/hr IVPB 0100, 0900,1700 [facility] Stop: 07/05/18 01:01 Last Admin: 07/04/18 01:49 Dose: 50 mls Hetastarch/Sodium Chloride (Hespan) 500 mls @ 30 mls/hr IVPB INF [facility] Last Admin: 07/04/18 06:56 Dose: 500 mls Dextrose/Water (D5w) 1,000 mls @ 0 mls/hr IV .Q0M PRN PRN Reason: Hypoglycemia Sodium Chloride (Normal Saline 0.9%) 500 mls @ 0 mls/hr IV .Q0M CASE Heparin Sodium/Dextrose (Heparin 25,000 Units/D5w 500 Ml) 500 mls @ 2 mls/hr IVPB INF CASE Amiodarone HCl 450 mg/Miscellaneous Medication 1 each/ Dextrose/Water 259 mls @ 0 mls/hr IVPB INF [facility]; Protocol Last Admin: 07/04/18 01:49 Dose: 259 mls Insulin Human Lispro (Humalog) 0 units SC .MODERATE SLIDING SC PRN PRN Reason: Moderate Correctional Scale Last Admin: 07/03/18 16:51 Dose: 2 unit Insulin Human Lispro (Humalog) 0 units SC .BEDTIME SLIDING SC PRN PRN Reason: Bedtime Correctional Scale Loperamide HCl (Imodium) 2 mg PO PRN PRN PRN Reason: Diarrhea/Loose Stools Loratadine (Claritin) 10 mg PO DAILYPRN PRN PRN Reason: Sinus Symptoms Magnesium Hydroxide (Milk Of Magnesium) 30 ml PO DAILYPRN PRN PRN Reason: Constipation Methocarbamol (Robaxin) 750 mg PO DAILY [facility] Morphine Sulfate (Morphine) 2 mg SLOW IVP Q2H PRN PRN Reason: Moderate Pain (4-6) Ondansetron HCl (Zofran Odt) 4 mg PO Q6H PRN PRN Reason: Nausea/Vomiting Ondansetron HCl (Zofran) 4 mg IVP Q6H PRN PRN Reason: Nausea/Vomiting (Hydroxyurea [Siklos (] 100 Mg) Hm Med) 0 each PO BID [facility] Phenol (Chloraseptic [place] 180 Ml Bot) 0 ml PO PRN PRN PRN Reason: Sore Throat Promethazine HCl (Phenergan) 12.5 mg IM Q4H PRN PRN Reason: Nausea Senna (Senokot) 2 tab PO HSPRN PRN PRN Reason: Constipation Simethicone (Mylicon Chewable) 160 mg PO PCHS PRN PRN Reason: Gas Pain Sodium Chloride (Flush - Normal Saline) 10 ml IVF PRN PRN PRN Reason: Saline Flush Sodium Chloride ([place] Nasal [place] 0.65%) 0 ml EA NARE QIDPRN PRN PRN Reason: Nasal Congestion Solifenacin (Vesicare) 5 mg PO DAILY CASE Tramadol HCl (Ultram) 50 mg PO Q6H PRN PRN Reason: Mild Pain (1-3) Tramadol HCl (Ultram) 50 mg PO QID PRN PRN Reason: Pain Zolpidem Tartrate (Ambien) 5 mg PO HSPRN PRN PRN Reason: Insomnia
[2018-07-04] MEDS: Aspirin 81 mg Enteric Coated Tablet PO SCH ×3 (11:02→21:11)
[2018-07-04] MEDS: Famotidine 20 MG TAB PO SCH ×2 (11:04→21:11)
[2018-07-04] MEDS: Cyanocobalamin (Vitamin B-12) 1,000 MCG TAB PO SCH (11:05)
[2018-07-04] MEDS: Furosemide 20 MG TAB PO SCH (11:05)
[2018-07-04] MEDS: Finasteride 5 MG TAB PO SCH (11:06)
[2018-07-04] MEDS: Docusate 100 MG CAP PO SCH (11:06)
[2018-07-04] MEDS: Folic Acid 1 MG TAB PO SCH (11:06)
[2018-07-04] MEDS: Gabapentin 400 MG CAP PO SCH (11:07)
[2018-07-04] MEDS: Fish Oil 1,000 MG CAP PO SCH (11:07)
[2018-07-04] MEDS: Methocarbamol 500 MG TAB PO SCH (11:08)
[2018-07-04] MEDS: Fluticasone Propionate Nasal Spray 16 gm Bottle NASAL SCH (11:10)
--- NOTE | 2018-07-04 14:25 | OP ---
PREOPERATIVE DIAGNOSES: Left thumb, index finger, middle finger, ring finger and small finger injuri es from a saw. Injures otherwise follows by finger based on postoperative diagnoses. POSTOPERATIVE DIAGNOSES: 1. Left thumb. A. Left thumb saw laceration, 5 cm with intact neurovascular bundles. B. Left thumb partial longitudinal flexor pollicis longus laceration and its insertion. 2. Injuries at the left index finger: A. Saw laceration 4 cm at the base of the proximal phalanx. 3. Open proximal phalanx fracture, approximately 30% of bone cortex violated with incomplete fractur e. 4. A2 alba laceration. 5. Flexor digitorum profundus laceration, zone 2. 6. Flexor digitorum superficialis laceration, zone 2. 7. Radial and ulnar digital nerve laceration proximal phalanx. 8. Radial and ulnar digital artery laceration. 9. Flexor sheath laceration. 10. Injury of long finger. A. A 3.5 cm proximal phalanx laceration. B. Proximal phalanx fracture approximately 20% cortical depth in sagittal view incomplete fracture. C. Partial A2 alba laceration. D. Flexor digitorum profundus laceration, zone 2. E. Flexor digitorum superficialis laceration, zone 2. F. Ulnar and radial digital nerve laceration. G. Ulnar and radial digital artery lacerations. 11. Injury of ring finger. A. A 3.5 cm laceration, very distal rami, ulnar aspect laceration one of three, but the other two ar e intact seen on neuroplasty. B. Flexor tendons intact digitorum profundus at the level of sheath laceration only. Ring finger, a 2.5 cm laceration. PROCEDURES PERFORMED: At the small finger: A. A 2.5 cm wound debridement. B. A 2.5 cm laceration closure. At the ring finger: A. Debridement of wound. B. Closure of wound 3 cm complex. C. Debridement of sheath. D. Irrigation of wound. E. Radial and ulnar digital nerve neuroplasty. At the thumb: A. Debridement of wound down to including the insertion. B. Flexor pollicis longus repair, approximately 50% laceration in the sagittal plane. C. Digital nerve neuroplasty microscopic thumb. At the index finger: A. Debridement of wound. B. Debridement of material associated open fracture. C. Open treatment of open fracture proximal phalanx. D. A2 alba partial laceration repair. E. Flexor digitorum superficialis laceration repair. F. Flexor digitorum profundus laceration repair. G. Radial digital nerve repair, microscopic. H. Ulnar digital nerve repair, microscopic. I. Ulnar digital artery repair, microscopic. J. Closure of wound, 3 cm, complex techniques. At the long finger: The exact same procedures were done at the long finger as were done at the index finger with the addition of both radial and ulnar artery repair, microscopic, and the laceration was 3 cm as well which was closed. Exact same procedure was done at the long finger as well as a ring f bro except 2 arteries microscopic repair. INDICATIONS: The patient had a saw contact. He is an 88-year-old male, 2 graduate of [employer], who was creating a gift of wood work for a great grandchild when the saw contacted em nd given palm lacerations at the digit listed above. It was evacuated after given antibiotics withou t debridement to our facility and we brought to the operating within 4 hours of his injury because he had no circulation visible and no flexor tendon function of the index and long finger preop. DESCRIPTION OF PROCEDURE: After successful general endotracheal anesthesia, the limb was prepped and draped. Tourniquet was inflated to 200 mmHg before prepping because of copious bleeding and this wa s the reason why he was taken to the operating room emergently and Dr. Yusuf canceled all other pr ocedures for the rest of the day in order to facilitate his emergency care. Then, the patient with the tourniquet inflated, we extended the wound on his thumb by 2 cm zigzag fas hion, the wound on the index finger about 3 cm proximal and a Marcio incision distally 1.5 cm, incisi on on the middle finger by 2 cm proximal and 1.5 cm distal and the wounds on the ring finger and smal l finger about 1 cm proximal. We performed debridement of the wound edges sequentially in each finge r using the forward techniques. A: Use of tenotomy scissor, [place] blade, 11 blade knife and a curet for the bone. B: Excisional technique. C. Use of Pulsavac, a total of 5 liters, approximately 1200 for digit and removed small aspects of d irt, but in general it was clean with minimal contamination due to depth include the bone of the inde x and long down to, but not including the bone on the other digits. Attention was also made to remove the jagged edges from some of the incision as well as to debride th e flexor tendon areas of the thumb, index and middle finger injury. Once before complete sequential debridement and completion of sequential irrigation of the wounds, we then finished our dissection, i dentified the patient's flexors pollicis longus laceration of thumb was transferred with the longitud inal plane and is almost alligator type or fish type open with deep one half intact, so it could be r epaired primarily. Radiographs revealed the fracture of the phalanges on the index and long finger w ere incomplete with over 45% of the cortex still intact, so debridement of fracture was part of the o pen treatment. We then began to repair after seeing via neuroplasty thumb that the primary rami distal were intact o n the radial and ulnar aspect, circulation was intact at the arch, and that the FPL was repairable, w e preserved the repair for later because we found also that there were two neurovascular bundles inta ct on the ring and small finger, only a sheath injury on the ring finger and there was no evidence of need for microvascular procedure on these two digits. We then turned attention to the two digits wh ere we found the complete laceration of the artery loss and nerve. First, we debrided, found the 2 tendon ends, first index finger, brought them into the primary wound, debrided the ends, 1 mm because they were so jagged, and then began to repair by first with the flex or digitorum superficialis using for each half of this tendon 2 loop sutures. Then, once we brought the loop suture together through the alba system, we repaired the back wall with a running locked 6 -0 chromic, we then prepared the closure defect by tying in appropriate manner to complete the Robert-Patricia nath 8-strand technique here. We performed the same technique on the flexion digitorum profundus secon dly with same debridement to remove the mop end-type appearance, oversewed it with a 6-0 Prolene and then tighten the 2 knots. On both of these two tendons, we then ran the 6-0 Prolene on the opposite side of the tendon and tied to give an excellent coaptation as well as excellent pullout strength kika t there was no effect. I could passively extend and there is no abnormality. On the index finger, o nce we had done this, I repaired the half of the A1 alba that had been cut as well. This was done with a [id number] multiple Prolenes. under tendon sheath flexion. We then turned attention to the long finger and performed the same flexor digitorum superficialis fir st, Jones-Carole techniques multiple strand tendon repair, first on the flexure digitorum superficialis w ith the 6-0 Prolene oversew and then on flexor digitorum profundus with the 6-0 oversew, running tend on repair. Again, there was no gap formation seen with full extension. We debrided some of the castellon th that was nonviable, maintained the alba that was still there without repair and then realized we finished the tendinous portion. We brought the microscope to the field. While it was being draped and prepped, I found to be a soft tissue dissection all 4 digital nerves, radial, ulna, index and long finger, all four digital arterie s, and found that none of these were intact after the injury. Then we proceeded with the microscope on the field, we placed through back around additional neurovascular bundle beginning on the ulnar va scular bundle of the middle finger, repaired the radial digital nerve and then ulnar digital nerve us ing 8-0 Nurolon suture, 4 suture epineural repair. Then, we released the tourniquet, which had been done 2 hours in long before we started the microvascular, and prepared the artery under microscope on both sides because this finger was white without circulation, whatsoever. We then used a coapting v essel cardoza to repair the ulna and then the radial digital artery to the long finger/middle finger w ith 9-0 nylon suture. Afterwards, bolus of heparin was given, before we had done the procedure, we h ad copious bleeding from the end closest to the and after placing six sutures 9-0, each of the 2 repairs were excellent viable and showed no evidence of clot formation early. Heparin was immediat mayo given 5000 unit bolus with 250 units per hour drip after this. Hespan was also started at 100 mL bolus with 30 mL per hour after this. Now, we had a pink small middle finger with 1 second refill r eturned, attention now to the index finger where we already found the neurovascular bundles, we place d blue background under radial and ulna neurovascular bundle, the ulnar digital artery was dominant, so we resected about 1-2 mm, unclotted it to the point it was pulsatile flow out onto the tip of the other digits, clamped both with the vest repair clamp, both ends, then repaired the artery using 9-0 nylon. We had excellent pink digit. Then, since excellent, we decided not to do the radial side of this digit, then we microscopically repaired both the radial and ulnar digital nerve using 9- 0 Nurolon epineural repair with excellent coaptation. We now irrigated slightly all areas, putting moist normal saline under the tips of the fingers and th en turned our attention to the thumb first. Here, we brought C-arm into the field and found that th ere was no fracture to the thumb, distal phalanx it was and we used a [id number], 4-0 Prolene, x 3 sutures on the radial side and 3 on the ulnar side and one on the central to bring the alligator sp lit/fish mouth repair together. Then after this, there was excellent 20-degree position of the thumb in flexion at the IP joint. We then closed this incision with hemostasis using 4-0 nylon interrupte d simple pattern. At the ring finger and thumb, we had excellent circulation as well, we had already visualized neurovascular bundles although need for surgery he has, so we debrided the edges for the last time, then closed the incision in the complex fashion with several interrupted 4-0 Monocryl and then 4-0 nylon on the epidermis. Finally, at the small finger, we had finished debriding the edges o f the laceration versus flexor tendon was intact. Flexor digitorum profundus by evaluation, then we simply closed the skin with interrupted 4-0 nylon. Finally, when we turned our attention to the midd le finger and the index finger, we had make complex incision, so we were able to close the defect wit h 4-0 nylon without undue tension, this includes would be middle finger. The patient had bacitracin, Adaptic dressing applied to all the digits, C-arm was removed from the field that showed the fractur e may have been apparently more stable with tendon repair and we then placed the patient in a sugar t quinton splint with a dorsal block, 2 cm distal tip of the long finger to protect it from itself. We jeff l check the patient in 12-24 hours.
--- NOTE | 2018-07-04 15:15 | PRG ---
DATE OF SERVICE: 07/04/2018 SUBJECTIVE: He has no complaints today. States he is doing well. PHYSICAL EXAMINATION: VITAL SIGNS: He is afebrile, heart rate 59, respiratory rate is 15, oximetry is 100% on 2 liters, bl ood pressure 135/62. LUNGS: Clear. HEART: Regular rhythm. ABDOMEN: Soft. MUSCULOSKELETAL: His left hand is still bandaged. IMPRESSION: 1. 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 2. Atrial fibrillation which is the reason he is still in the hospital. 3. Diabetes. 4. Sleep apnea. 5. Hypertension. 6. ? multiple myeloma. PLAN: Continue wound care and atrial fibrillation management.
--- NOTE | 2018-07-04 17:06 | PDOC.CTH ---
Cardiology Progress Note - Subjective Doing well. No new issues. - Objective Vital Signs Temp Pulse Resp BP BP Pulse Ox 07/04/18 16:05 99.0 F 62 15 134/61 100 07/04/18 12:05 99.5 F 59 L 15 135/62 100 07/04/18 07:55 99.5 F 59 L 15 128/59 L 100 07/04/18 07:00 98.2 F 07/04/18 06:15 95 Weight 211 lb 3.245 oz 07/03/18 07/04/18 07/05/18 06:59 06:59 06:59 Intake Total 734 3645 Output Total 300 2080 55 Balance 434 1565 -55 - Physical Examination General/Neuro: alert & oriented x3, NAD Neck: no JVD present Lungs: CTA, unlabored respirations Heart: RRR Abdomen: NT/ND Extremities: + edema B (trace) - Telemetry Telemetry Rhythm: NSR - Labs Result Diagrams: 07/03/18 04:00 07/03/18 03:30 Troponin/CKMB CK-MB (CK-2) 3.7 ng/mL (0-6.6) 07/04/18 04:20 Troponin I 0.039 ng/mL (< 0.028) H 07/04/18 04:20 - Assessment/Plan 1. SVT, cannot rule out Aflutter with 2-1 AV block. 2. S/P Hand surgery PLAN: - Will switch his amiodarone to a BB only. - CHADS VASc score of at least 4 making him a candidate for full anticoagulation. - Currently on a heparin drip. - Once off drips and nor more surgeries planned will switch to Eliquis 2.5 mg PO BID.
[2018-07-04] MEDS: HYDROcodone/Acetaminophen 5/325 mg Tablet PO PRN (21:11)
[2018-07-05 05:46] LABS: #Basophils 0.2 thou/uL (0.0-0.2); #Eosinphils 0.2 thou/uL (0.0-0.7); #Lymphocytes 1.6 thou/uL (1.20-3.40); #Monocytes 1.2 thou/uL (0.11-0.59); %Basophils 1.2 % (0.0-1.0); %Lymphocytes 9.1 % (21.0-51.0); %Neutrophils 81.6 % (42.0-75.0); Hemoglobin 6.9 g/dL (14.0-18.0); Mean Corpuscular HGB CONC 32.6 g/dL (32.0-36.0); Mean Corpuscular Hemoglobin 38.1 pg (27.0-31.0); Mean Platelet Volume 9.1 fL (7.4-10.4); Platelet Count 212 thou/uL (130-400); RBC Distribution Width 18.8 % (11.5-14.5); Red Blood Cell (RBC) Count 1.82 mill/uL (4.70-6.10); White Blood Cell (WBC) Count 17.1 thou/uL (4.8-10.8)
[2018-07-05 06:04] LABS: Anion Gap 7 mmol/L (10-20); BUN (Urea Nitrogen) 17 mg/dL (8.4-25.7); Calc. Creatinine Clearance 55 mL/min (70-130); Calcium 7.1 mg/dL (7.8-10.44); Carbon Dioxide 25 mmol/L (23-31); Chloride 109 mmol/L (98-107); Estimated GFR-MDRD 52; Glucose 79 mg/dL (83-110); Potassium 4.1 mmol/L (3.5-5.1); Sodium 137 mmol/L (136-145)
[2018-07-05] MEDS: Fluticasone Propionate Nasal Spray 16 gm Bottle NASAL SCH (09:12)
[2018-07-05] MEDS: Methocarbamol 500 MG TAB PO SCH (09:12)
[2018-07-05] MEDS: Docusate 100 MG CAP PO SCH (09:14)
[2018-07-05] MEDS: Finasteride 5 MG TAB PO SCH (09:14)
[2018-07-05] MEDS: Gabapentin 400 MG CAP PO SCH (09:14)
[2018-07-05] MEDS: Famotidine 20 MG TAB PO SCH ×2 (09:14→20:13)
[2018-07-05] MEDS: Cyanocobalamin (Vitamin B-12) 1,000 MCG TAB PO SCH (09:14)
[2018-07-05] MEDS: Aspirin 81 mg Enteric Coated Tablet PO SCH (09:15)
[2018-07-05] MEDS: Furosemide 20 MG TAB PO SCH (09:15)
[2018-07-05] MEDS: Folic Acid 1 MG TAB PO SCH (09:15)
[2018-07-05] MEDS: Fish Oil 1,000 MG CAP PO SCH (09:15)
--- NOTE | 2018-07-05 10:48 | PDOC.PN ---
- Subjective Encounter Start Date: 07/05/18 Encounter Start Time: 08:20 Patient seen and examined. No new complaints. No overnight events - Objective Resuscitation Status: Resuscitation Status FULL:Full Resuscitation MAR Reviewed: Yes Vital Signs & Weight: Vital Signs (12 hours) Temp Pulse Resp BP Pulse Ox 07/05/18 08:00 98.9 F 58 L 14 119/58 L 98 07/05/18 04:00 98.6 F 56 L 18 125/58 L 100 07/04/18 23:45 99.9 F H Weight Weight 211 lb 3.245 oz Most Recent Monitor Data Heart Rate from ECG 64 NIBP 110/48 NIBP BP-Mean 91 Respiration from ECG 21 SpO2 85 I&O: 07/04/18 07/05/18 07/06/18 06:59 06:59 06:59 Intake Total 3645 2230 Output Total 2080 2430 Balance 1565 -200 Result Diagrams: 07/05/18 04:36 07/05/18 04:36 Additional Labs: Accuchecks 07/04/18 07/04/18 07/04/18 20:55 17:05 12:02 POC Glucose 123 H 127 H 124 H EKG Reviewed by me: Yes (nsr) Phys Exam - Physical Examination Constitutional: NAD HEENT: PERRLA, moist MMs, sclera anicteric Neck: no JVD, supple Respiratory: no wheezing, no rales, no rhonchi Cardiovascular: RRR, no significant murmur, no rub Gastrointestinal: soft, non-tender, no distention, positive bowel sounds Musculoskeletal: no edema, pulses present left hand UE with dressing Neurological: non-focal, normal sensation, moves all 4 limbs Psychiatric: normal affect, A&O x 3 Skin: no rash, normal turgor Dx/Plan (1) Laceration of finger of left hand with complication Code(s): S61.412A - LACERATION WITHOUT FOREIGN BODY OF LEFT HAND, INIT ENCNTR Status: Acute Comment: s/p surgical repair (2) Hypoalbuminemia Code(s): E88.09 - OTH DISORDERS OF PLASMA-PROTEIN METABOLISM, NEC Status: Acute (3) Leucocytosis Code(s): D72.829 - ELEVATED WHITE BLOOD CELL COUNT, UNSPECIFIED Status: Acute (4) BPH (benign prostatic hyperplasia) Code(s): N40.0 - BENIGN PROSTATIC HYPERPLASIA WITHOUT LOWER URINRY TRACT SYMP Status: Chronic (5) Diabetes type 2, controlled Code(s): E11.9 - TYPE 2 DIABETES MELLITUS WITHOUT COMPLICATIONS Status: Chronic (6) Dyslipidemia Code(s): E78.5 - HYPERLIPIDEMIA, UNSPECIFIED Status: Chronic (7) Hypertension Code(s): I10 - ESSENTIAL (PRIMARY) HYPERTENSION Status: Chronic (8) Macrocytic anemia Code(s): D53.9 - NUTRITIONAL ANEMIA, UNSPECIFIED Status: Chronic (9) Demand ischemia Code(s): I24.8 - OTHER FORMS OF ACUTE ISCHEMIC HEART DISEASE Status: Acute (10) Elevated brain natriuretic peptide (BNP) level Code(s): R79.89 - OTHER SPECIFIED ABNORMAL FINDINGS OF BLOOD CHEMISTRY Status : Acute (11) SVT (supraventricular tachycardia) Code(s): I47.1 - SUPRAVENTRICULAR TACHYCARDIA Status: Resolved (12) Anemia due to acute blood loss Code(s): D62 - ACUTE POSTHEMORRHAGIC ANEMIA Status: Acute - Plan cont current plan of care, plan discussed w/ family * on heparin drip as per primary team * stable with toprol xl * will transfuse 1 unit of PRBC for low Hb * discussed with * repeat labs tomorrow * discharge will defer to primary team but not today. Review of Systems - Review of Systems Eyes: negative: Pain, Vision Change, Conjunctivae Inflammation, Eyelid Inflammation, Redness, Other ENT: negative: Ear Pain, Ear Discharge, Nose Pain, Nose Discharge, Nose Congestion, Mouth Pain, Mouth Swelling, Throat Pain, Throat Swelling, Other Respiratory: negative: Cough, Dry, Shortness of Breath, Hemoptysis, SOB with Excertion, Pleuritic Pain, Sputum, Wheezing Cardiovascular: negative: chest pain, palpitations, orthopnea, paroxysmal nocturnal dyspnea, edema, light headedness, other Gastrointestinal: negative: Nausea, Vomiting, Abdominal Pain, Diarrhea, Constipation, Melena, Hematochezia, Other Genitourinary: negative: Dysuria, Frequency, Incontinence, Hematuria, Retention , Other Musculoskeletal: negative: Neck Pain, Shoulder Pain, Arm Pain, Back Pain, Hand Pain, Leg Pain, Foot Pain, Other - Medications/Allergies Allergies/Adverse Reactions: Allergies Allergy/AdvReac Type Severity Reaction Status Date / Time penicillin G Allergy Intermediate Rash Verified 07/03/18 01:19 Medications: Current Medications Acetaminophen (Tylenol) 650 mg PO Q4H PRN PRN Reason: Headache/Fever or Pain Hydrocodone Bitart/Acetaminophen ([place] 5/325) 1 tab PO Q4H PRN PRN Reason: Moderate Pain (4-6) Last Admin: 07/04/18 21:11 Dose: 1 tab Al Hydroxide/Mg Hydroxide (Maalox) 30 ml PO Q6H PRN PRN Reason: Heartburn or Indigestion Artificial Tears (Tears Naturale) 0 drop EA EYE PRN PRN PRN Reason: Dry Eyes Aspirin (Ecotrin) 81 mg PO QAM [facility] Last Admin: 07/05/18 09:15 Dose: 81 mg Cholecalciferol (Vitamin D3) 2,000 units PO DAILY [facility] Last Admin: 07/05/18 09:13 Dose: 2,000 units Cyanocobalamin (Vitamin B-12) 1,000 mcg PO DAILY [facility] Last Admin: 07/05/18 09:14 Dose: 1,000 mcg Dextrose/Water (Dextrose 50%) 25 gm SLOW IVP PRN PRN PRN Reason: Hypoglycemia Docusate Sodium (Colace) 100 mg PO DAILY [facility] Last Admin: 07/05/18 09:14 Dose: 100 mg Emollient Cream (Hydrocerin Cream) 0 gm TOP BIDPRN PRN PRN Reason: Dry Skin Famotidine (Pepcid) 20 mg PO BID [facility] Last Admin: 07/05/18 09:14 Dose: 20 mg Fentanyl (Sublimaze) 50 mcg SLOW IVP Q30M PRN PRN Reason: Severe breakthrough pain Finasteride (Proscar) 5 mg PO DAILY [facility] Last Admin: 07/05/18 09:14 Dose: 5 mg Fish Oil (Fish Oil) 1,000 mg PO DAILY [facility] Last Admin: 07/05/18 09:15 Dose: 1,000 mg Fluticasone Propionate (Flonase Nasal [place]) 0 gm NASAL DAILY [facility] Last Admin: 07/05/18 09:12 Dose: 1 spr Folic Acid (Folvite) 1 mg PO DAILY [facility] Last Admin: 07/05/18 09:15 Dose: 1 mg Furosemide (Lasix) 20 mg PO QAM [facility] Last Admin: 07/05/18 09:15 Dose: 20 mg Gabapentin (Neurontin) 400 mg PO DAILY [facility] Last Admin: 07/05/18 09:14 Dose: 400 mg Glipizide (Glucotrol Xl) 2.5 mg PO QAM[facility] Last Admin: 07/05/18 09:13 Dose: 2.5 mg Glucagon (Glucagon) 1 mg IM PRN PRN PRN Reason: Hypoglycemia Guaifenesin (Robitussin Sf) 200 mg PO Q4H PRN PRN Reason: Cough Hydralazine HCl (Apresoline) 10 mg SLOW IVP Q4H PRN PRN Reason: Systolic BP > 180 Hetastarch/Sodium Chloride (Hespan) 500 mls @ 30 mls/hr IVPB INF [facility] Last Admin: 07/04/18 23:39 Dose: 500 mls Dextrose/Water (D5w) 1,000 mls @ 0 mls/hr IV .Q0M PRN PRN Reason: Hypoglycemia Sodium Chloride (Normal Saline 0.9%) 500 mls @ 0 mls/hr IV .Q0M [facility] Last Admin: 07/04/18 17:02 Dose: 500 mls Heparin Sodium/Dextrose (Heparin 25,000 Units/D5w 500 Ml) 500 mls @ 2 mls/hr IVPB INF [facility] Insulin Human Lispro (Humalog) 0 units SC .MODERATE SLIDING SC PRN PRN Reason: Moderate Correctional Scale Last Admin: 07/03/18 16:51 Dose: 2 unit Insulin Human Lispro (Humalog) 0 units SC .BEDTIME SLIDING SC PRN PRN Reason: Bedtime Correctional Scale Loperamide HCl (Imodium) 2 mg PO PRN PRN PRN Reason: Diarrhea/Loose Stools Loratadine (Claritin) 10 mg PO DAILYPRN PRN PRN Reason: Sinus Symptoms Magnesium Hydroxide (Milk Of Magnesium) 30 ml PO DAILYPRN PRN PRN Reason: Constipation Methocarbamol (Robaxin) 750 mg PO DAILY [facility] Last Admin: 07/05/18 09:12 Dose: 750 mg Metoprolol Succinate (Toprol Xl) 25 mg PO DAILY [facility] Last Admin: 07/05/18 09:13 Dose: 25 mg Morphine Sulfate (Morphine) 2 mg SLOW IVP Q2H PRN PRN Reason: Moderate Pain (4-6) Ondansetron HCl (Zofran Odt) 4 mg PO Q6H PRN PRN Reason: Nausea/Vomiting Ondansetron HCl (Zofran) 4 mg IVP Q6H PRN PRN Reason: Nausea/Vomiting (Hydroxyurea [Siklos (] 100 Mg) Hm Med) 0 each PO BID [facility] Phenol (Chloraseptic [place] 180 Ml Bot) 0 ml PO PRN PRN PRN Reason: Sore Throat Promethazine HCl (Phenergan) 12.5 mg IM Q4H PRN PRN Reason: Nausea Senna (Senokot) 2 tab PO HSPRN PRN PRN Reason: Constipation Simethicone (Mylicon Chewable) 160 mg PO PCHS PRN PRN Reason: Gas Pain Sodium Chloride (Flush - Normal Saline) 10 ml IVF PRN PRN PRN Reason: Saline Flush Sodium Chloride ([place] Nasal [place] 0.65%) 0 ml EA NARE QIDPRN PRN PRN Reason: Nasal Congestion Solifenacin (Vesicare) 5 mg PO DAILY [facility] Last Admin: 07/05/18 09:18 Dose: 5 mg Tramadol HCl (Ultram) 50 mg PO Q6H PRN PRN Reason: Mild Pain (1-3) Tramadol HCl (Ultram) 50 mg PO QID PRN PRN Reason: Pain Zolpidem Tartrate (Ambien) 5 mg PO HSPRN PRN PRN Reason: Insomnia
--- NOTE | 2018-07-05 10:49 | EKG ---
Test Reason : Blood Pressure : / mmHG Vent. Rate : 138 BPM Atrial Rate : 138 BPM P-R Int : 176 ms QRS Dur : 098 ms QT Int : 306 ms P-R-T Axes : -08 012 213 degrees QTc Int : 463 ms Sinus tachycardia Posterior infarct , possibly acute ACUTE CT / STEMI Abnormal ECG When compared with ECG of 02-JUL-2018 11:32, Vent. rate has increased BY [address] now depressed in Anterior leads T wave inversion now evident in Lateral leads Confirmed by DR. Brandon MOMIN ([id number]), makeup editor DONTE GRANT ([id number]) on 07/05/2018 10:49:13 AM Referred By: Confirmed By:DR. Brandon MOMIN
--- NOTE | 2018-07-05 12:46 | PRG ---
DATE OF SERVICE: 07/05/2018 SUBJECTIVE: The patient is sleeping. I had a hard time getting him to wake up. OBJECTIVE: VITAL SIGNS: Temperature 99.6, pulse 58, respiration 16, O2 sat 92%, blood pressure 144/67. HEENT: Unremarkable. NECK: No JVD. LUNGS: Clear. CARDIAC: S1 and S2 regular. ABDOMEN: Soft. EXTREMITIES: No edema. LABORATORY DATA: White blood cell count 17, hematocrit 21.2, platelet count 212. Sodium 137, potass ium 4.1, chloride 100, CO2 25, BUN 17, creatinine 1.3, glucose 79. It is noted during the exam, the patient is getting a blood transfusion, also was getting Hespan. ASSESSMENT: 1. 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 2. Atrial fibrillation. 3. Diabetes. 4. Obstructive sleep apnea. 5. Hypertension. 6. Multiple myeloma. 7. Anemia due to blood loss. PLAN: The patient is getting transfused, need to monitor his H&H. Following with you.
[2018-07-05] MEDS: Hetastarch 6% 500 ML 500 ML IVPB SCH (20:12)
[2018-07-05] MEDS: HYDROcodone/Acetaminophen 5/325 mg Tablet PO PRN (22:05)
[2018-07-05] MEDS: Cephalexin 250 MG CAP PO SCH (22:06)
[2018-07-06 05:20] LABS: Anion Gap 8 mmol/L (10-20); BUN (Urea Nitrogen) 19 mg/dL (8.4-25.7); Calc. Creatinine Clearance 55 mL/min (70-130); Calcium 7.3 mg/dL (7.8-10.44); Carbon Dioxide 24 mmol/L (23-31); Chloride 108 mmol/L (98-107); Estimated GFR-MDRD 52; Glucose 103 mg/dL (83-110); Potassium 4.3 mmol/L (3.5-5.1); Sodium 136 mmol/L (136-145)
[2018-07-06 05:44] LABS: Band 2 % (5-11); Eosinophils 4 % (0-10); Hemoglobin 8.2 g/dL (14.0-18.0); Lymphocytes 6 % (21-51); MDiff Complete? YES; Macrocytosis SLIGHT = 6-15 cells (100X) (0-5/hpf); Mean Corpuscular HGB CONC 32.2 g/dL (32.0-36.0); Mean Corpuscular Hemoglobin 36.7 pg (27.0-31.0); Mean Platelet Volume 9.3 fL (7.4-10.4); Monocytes 10 % (0-10); Neutrophil 78 % (42-75); Platelet Count 263 thou/uL (130-400); RBC Distribution Width 19.1 % (11.5-14.5); Red Blood Cell (RBC) Count 2.23 mill/uL (4.70-6.10); White Blood Cell (WBC) Count 21.8 thou/uL (4.8-10.8)
[2018-07-06] MEDS: Cephalexin 250 MG CAP PO SCH ×2 (05:53→15:08)
--- NOTE | 2018-07-06 09:23 | PDOC.PN ---
- Subjective Encounter Start Date: 07/06/18 Encounter Start Time: 07:10 pt is doing well, no new problems, on heparin drip - Objective Resuscitation Status: Resuscitation Status FULL:Full Resuscitation MAR Reviewed: Yes Vital Signs & Weight: Vital Signs (12 hours) Temp Pulse Resp BP Pulse Ox 07/06/18 08:13 98.4 F 60 16 135/65 92 L 07/06/18 04:00 98.8 F 61 16 133/63 93 L Weight Weight 211 lb 3.245 oz Most Recent Monitor Data Heart Rate from ECG 64 NIBP 110/48 NIBP BP-Mean 91 Respiration from ECG 21 SpO2 85 I&O: 07/05/18 07/06/18 07/07/18 06:59 06:59 06:59 Intake Total 2230 3047 Output Total 2430 1600 Balance -200 1447 Result Diagrams: 07/06/18 04:23 07/06/18 04:23 Additional Labs: Accuchecks 07/06/18 07/05/18 07/05/18 05:56 20:49 17:09 POC Glucose 113 H 132 H 110 07/05/18 07/05/18 10:52 05:38 POC Glucose 135 H 94 EKG Reviewed by me: Yes (nsr) Phys Exam - Physical Examination Constitutional: NAD HEENT: PERRLA, moist MMs, sclera anicteric Neck: no JVD, supple Respiratory: no wheezing, no rales, no rhonchi Cardiovascular: RRR, no significant murmur, no rub Gastrointestinal: soft, non-tender, no distention, positive bowel sounds Musculoskeletal: no edema, pulses present left upper extrimity with dressing good capillary filling Neurological: non-focal, normal sensation, moves all 4 limbs Psychiatric: normal affect, A&O x 3 Skin: no rash, normal turgor Dx/Plan (1) Laceration of finger of left hand with complication Code(s): S61.412A - LACERATION WITHOUT FOREIGN BODY OF LEFT HAND, INIT ENCNTR Status: Acute Comment: s/p surgical repair (2) Hypoalbuminemia Code(s): E88.09 - OTH DISORDERS OF PLASMA-PROTEIN METABOLISM, NEC Status: Acute (3) Leucocytosis Code(s): D72.829 - ELEVATED WHITE BLOOD CELL COUNT, UNSPECIFIED Status: Acute (4) BPH (benign prostatic hyperplasia) Code(s): N40.0 - BENIGN PROSTATIC HYPERPLASIA WITHOUT LOWER URINRY TRACT SYMP Status: Chronic (5) Diabetes type 2, controlled Code(s): E11.9 - TYPE 2 DIABETES MELLITUS WITHOUT COMPLICATIONS Status: Chronic (6) Dyslipidemia Code(s): E78.5 - HYPERLIPIDEMIA, UNSPECIFIED Status: Chronic (7) Hypertension Code(s): I10 - ESSENTIAL (PRIMARY) HYPERTENSION Status: Chronic (8) Macrocytic anemia Code(s): D53.9 - NUTRITIONAL ANEMIA, UNSPECIFIED Status: Chronic (9) Demand ischemia Code(s): I24.8 - OTHER FORMS OF ACUTE ISCHEMIC HEART DISEASE Status: Acute (10) Elevated brain natriuretic peptide (BNP) level Code(s): R79.89 - OTHER SPECIFIED ABNORMAL FINDINGS OF BLOOD CHEMISTRY Status : Acute (11) SVT (supraventricular tachycardia) Code(s): I47.1 - SUPRAVENTRICULAR TACHYCARDIA Status: Resolved (12) Anemia due to acute blood loss Code(s): D62 - ACUTE POSTHEMORRHAGIC ANEMIA Status: Acute - Plan cont current plan of care, continue antibiotics * continue toprol xl on discharge * he can resume all his home meds on discharge * he does not need tele monitoring * heparin drip will defer to primary team * discharge will defer to primary team * medication reviewed as below * symptomatic treatment. Review of Systems - Review of Systems Eyes: negative: Pain, Vision Change, Conjunctivae Inflammation, Eyelid Inflammation, Redness, Other ENT: negative: Ear Pain, Ear Discharge, Nose Pain, Nose Discharge, Nose Congestion, Mouth Pain, Mouth Swelling, Throat Pain, Throat Swelling, Other Respiratory: negative: Cough, Dry, Shortness of Breath, Hemoptysis, SOB with Excertion, Pleuritic Pain, Sputum, Wheezing Cardiovascular: negative: chest pain, palpitations, orthopnea, paroxysmal nocturnal dyspnea, edema, light headedness, other Gastrointestinal: negative: Nausea, Vomiting, Abdominal Pain, Diarrhea, Constipation, Melena, Hematochezia, Other Genitourinary: negative: Dysuria, Frequency, Incontinence, Hematuria, Retention , Other Musculoskeletal: negative: Neck Pain, Shoulder Pain, Arm Pain, Back Pain, Hand Pain, Leg Pain, Foot Pain, Other Skin: negative: Rash, Lesions, Branden, Bruising, Other - Medications/Allergies Allergies/Adverse Reactions: Allergies Allergy/AdvReac Type Severity Reaction Status Date / Time penicillin G Allergy Intermediate Rash Verified 07/03/18 01:19 Medications: Current Medications Acetaminophen (Tylenol) 650 mg PO Q4H PRN PRN Reason: Headache/Fever or Pain Hydrocodone Bitart/Acetaminophen ([place] 5/325) 1 tab PO Q4H PRN PRN Reason: Moderate Pain (4-6) Last Admin: 07/05/18 22:05 Dose: 1 tab Al Hydroxide/Mg Hydroxide (Maalox) 30 ml PO Q6H PRN PRN Reason: Heartburn or Indigestion Artificial Tears (Tears Naturale) 0 drop EA EYE PRN PRN PRN Reason: Dry Eyes Aspirin (Ecotrin) [address] [facility] Last Admin: 07/05/18 09:15 Dose: 81 mg Cephalexin (Keflex) [address] [facility] Last Admin: 07/06/18 05:53 Dose: 250 mg Cholecalciferol (Vitamin D3) 2,[address] [facility] Last Admin: 07/05/18 09:13 Dose: 2,000 units Cyanocobalamin (Vitamin B-12) 1,[address] [facility] Last Admin: 07/05/18 09:14 Dose: 1,000 mcg Dextrose/Water (Dextrose 50%) 25 gm SLOW IVP PRN PRN PRN Reason: Hypoglycemia Docusate Sodium (Colace) [address] [facility] Last Admin: 07/05/18 09:14 Dose: 100 mg Emollient Cream (Hydrocerin Cream) 0 gm TOP BIDPRN PRN PRN Reason: Dry Skin Famotidine (Pepcid) [address] [facility] Last Admin: 07/05/18 20:13 Dose: 20 mg Fentanyl (Sublimaze) 50 mcg SLOW IVP Q30M PRN PRN Reason: Severe breakthrough pain Finasteride (Proscar) [address] [facility] Last Admin: 07/05/18 09:14 Dose: 5 mg Fish Oil (Fish Oil) 1,[address] [facility] Last Admin: 07/05/18 09:15 Dose: 1,000 mg Fluticasone Propionate (Flonase Nasal [place]) [address] [facility] Last Admin: 07/05/18 09:12 Dose: 1 spr Folic Acid (Folvite) [address] [facility] Last Admin: 07/05/18 09:15 Dose: 1 mg Furosemide (Lasix) [address] [facility] Last Admin: 07/05/18 09:15 Dose: 20 mg Gabapentin (Neurontin) [address] [facility] Last Admin: 07/05/18 09:14 Dose: 400 mg Glipizide (Gl[facility]l) [facility] Admin: 07/05/18 09:13 Dose: 2.5 mg Glucagon (Glucagon) 1 mg IM PRN PRN PRN Reason: Hypoglycemia Guaifenesin (Robitussin Sf) 200 mg PO Q4H PRN PRN Reason: Cough Hydralazine HCl (Apresoline) 10 mg SLOW IVP Q4H PRN PRN Reason: Systolic BP > 180 Hetastarch/Sodium Chloride (Hespan) 500 mls @ 15 mls/hr IVPB INF [facility] Last Admin: 07/05/18 20:12 Dose: 500 mls Dextrose/Water (D5w) 1,000 mls @ 0 mls/hr IV .Q0M PRN PRN Reason: Hypoglycemia Sodium Chloride (Normal Saline 0.9%) 500 mls @ 0 mls/hr IV .Q0M [facility] Last Admin: 07/04/18 17:02 Dose: 500 mls Heparin Sodium/Dextrose (Heparin 25,000 Units/D5w 500 Ml) 500 mls @ 2 mls/hr IVPB INF [facility] Insulin Human Lispro (Humalog) 0 units SC .MODERATE SLIDING SC PRN PRN Reason: Moderate Correctional Scale Last Admin: 07/03/18 16:51 Dose: 2 unit Insulin Human Lispro (Humalog) 0 units SC .BEDTIME SLIDING SC PRN PRN Reason: Bedtime Correctional Scale Loperamide HCl (Imodium) 2 mg PO PRN PRN PRN Reason: Diarrhea/Loose Stools Loratadine (Claritin) 10 mg PO DAILYPRN PRN PRN Reason: Sinus Symptoms Magnesium Hydroxide (Milk Of Magnesium) 30 ml PO DAILYPRN PRN PRN Reason: Constipation Methocarbamol (Robaxin) [address] [facility] Last Admin: 07/05/18 09:12 Dose: 750 mg Metoprolol Succinate (Toprol Xl) [address] [facility] Last Admin: 07/05/18 09:13 Dose: 25 mg Morphine Sulfate (Morphine) 2 mg SLOW IVP Q2H PRN PRN Reason: Moderate Pain (4-6) Ondansetron HCl (Zofran Odt) 4 mg PO Q6H PRN PRN Reason: Nausea/Vomiting Ondansetron HCl (Zofran) 4 mg IVP Q6H PRN PRN Reason: Nausea/Vomiting (Hydroxyurea [Siklos (] 100 Mg) Hm Med) [address] [facility] Phenol (Chloraseptic [place] 180 Ml Bot) 0 ml PO PRN PRN PRN Reason: Sore Throat Promethazine HCl (Phenergan) 12.5 mg IM Q4H PRN PRN Reason: Nausea Senna (Senokot) 2 tab PO HSPRN PRN PRN Reason: Constipation Simethicone (Mylicon Chewable) 160 mg PO PCHS PRN PRN Reason: Gas Pain Sodium Chloride (Flush - Normal Saline) 10 ml IVF PRN PRN PRN Reason: Saline Flush Sodium Chloride ([place] Nasal [place] 0.65%) 0 ml EA NARE QIDPRN PRN PRN Reason: Nasal Congestion Solifenacin (Vesicare) [address] [facility] Last Admin: 07/05/18 09:18 Dose: 5 mg Tramadol HCl (Ultram) 50 mg PO Q6H PRN PRN Reason: Mild Pain (1-3) Tramadol HCl (Ultram) 50 mg PO QID PRN PRN Reason: Pain Zolpidem Tartrate (Ambien) 5 mg PO HSPRN PRN PRN Reason: Insomnia
[2018-07-06] MEDS: Aspirin 81 mg Enteric Coated Tablet PO SCH (09:39)
[2018-07-06] MEDS: Fish Oil 1,000 MG CAP PO SCH (09:40)
[2018-07-06] MEDS: Cyanocobalamin (Vitamin B-12) 1,000 MCG TAB PO SCH (09:40)
[2018-07-06] MEDS: Finasteride 5 MG TAB PO SCH (09:40)
[2018-07-06] MEDS: Famotidine 20 MG TAB PO SCH (09:40)
[2018-07-06] MEDS: Docusate 100 MG CAP PO SCH (09:40)
[2018-07-06] MEDS: Folic Acid 1 MG TAB PO SCH (09:41)
[2018-07-06] MEDS: Gabapentin 400 MG CAP PO SCH (09:41)
[2018-07-06] MEDS: Methocarbamol 500 MG TAB PO SCH (09:41)
[2018-07-06] MEDS: Furosemide 20 MG TAB PO SCH (09:41)
[2018-07-06] MEDS: Fluticasone Propionate Nasal Spray 16 gm Bottle NASAL SCH (10:54)
[2018-07-06] MEDS: HYDROXYUREA 100 MG PO SCH ×2 (14:14→16:40)
--- NOTE | 2018-07-06 16:43 | PRG ---
DATE OF SERVICE: 07/06/2018 SUBJECTIVE: Lively has no complaints. OBJECTIVE: VITAL SIGNS: He has not been febrile. Temperature max was 100.2. Heart rate 65, respiratory rate 1 7, oximetry is 92 on room air. LUNGS: He has fine crackles at both lung bases. CARDIOVASCULAR: Regular rhythm. ABDOMEN: Soft. I have encouraged him to use and spend incentive spirometry. I suspect his temperature of 100 is rel ated to atelectasis. We will continue to follow along with the other physicians caring for him.
[2018-07-06 17:29] VITALS: BP 149/65; TEMP 98.8
--- NOTE | 2018-07-06 17:37 | PDOC.CTH ---
Cardiology Progress Note - Subjective He is dong very well. he had a temperature of 100.2 earlier today but has not recurred. He has not had any more episodes of tachycardia. - Objective Vital Signs Temp Pulse Resp BP Pulse Ox 07/06/18 16:00 98.8 F 53 L 16 149/65 H 97 07/06/18 11:44 100.2 F H 65 17 128/60 07/06/18 08:15 98.4 F 60 16 92 L 07/06/18 08:13 98.4 F 60 16 135/65 92 L Weight 211 lb 3.245 oz 07/05/18 07/06/18 07/07/18 06:59 06:59 06:59 Intake Total 2230 3047 Output Total 2430 1600 Balance -200 1447 - Physical Examination General/Neuro: alert & oriented x3, NAD Neck: no JVD present Lungs: CTA, unlabored respirations Heart: RRR Abdomen: NT/ND Extremities: + edema B (trace) - Telemetry Telemetry Rhythm: NSR - Labs Result Diagrams: 07/06/18 04:23 07/06/18 04:23 Troponin/CKMB CK-MB (CK-2) 3.7 ng/mL (0-6.6) 07/04/18 04:20 Troponin I 0.039 ng/mL (< 0.028) H 07/04/18 04:20 - Assessment/Plan 1. 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 2. S/P Hand surgery PLAN: - Continue BB. - CHADS VASc score of at least 4 making him a candidate for full anticoagulation. - Currently on a heparin drip. - Once off drips and nor more surgeries planned will switch to Eliquis 2.5 mg PO BID. - Home any time from cardiac perspective.
[2018-07-06] MEDS ORDERED: Hydroxyurea 500 MG CAP PO SCH (21:00)
--- NOTE | 2018-07-07 13:52 | DIS ---
DATE OF ADMISSION: 07/03/2018 DATE OF DISCHARGE: 07/06/2018 HOSPITAL COURSE: This patient was admitted under hand surgeon, Dr. Timothy Yusuf. The patient had a left hand laceration injury with a table saw and he was initially evaluated at local emergency [facility] in [place] and subsequently he was directly admitted to OR. Dr. Yusuf did hand surgery. T he patient was having ischemic injury and that is why he was treated with heparin drip. He was admit kiya in CCU after surgery. In the CCU, he developed SVT and that is why Cardiology was consulted. He was treated with amiodarone drip and subsequently he was converted to sinus rhythm and Toprol XL was started. The patient was transferred to telemetry floor. He remained in sinus rhythm. He was gett ing care from Dr. Yusuf. He was getting antibiotic therapy with clindamycin initially and subsequ ently Keflex. The patient was doing very well and we continued to hold all his home medication while in hospital as well as upon discharge. We prescribed Toprol XL and vitamin B12 and folic acid for m acrocytosis. The patient was discharged by primary team yesterday and this is late dictation for his discharge summary.
--- NOTE | 2018-07-09 07:43 | RAD ---
LEFT FINGER 2 VIEWS: HISTORY: An 88-year-old male with a history of followup left finger fracture. This is from the taken list, which has just now been put into PACS for interpretation. FINDINGS: AP and lateral portable fluoroscopic spot images of the index finger demonstrate a slightly comminute d fracture involving the proximal portion of the proximal phalanx of the index finger. POS: [facility]
== END 2018-07-06 21:23 | disposition home or self-care (01) | DRG 580 ==
LOC: SDC 11:07 → CCU 15:34 → 2NO 07-04 08:01
PROVIDERS: ADMIT Orthopaedic Surgery Hand Surgery; ATTEND Orthopaedic Surgery Hand Surgery
PROC: 0LQ80ZZ Repair Left Hand Tendon, Open Approach (ICD-10-PCS; principal; 2018-07-03)
PROC: 0XQP0ZZ Repair Left Index Finger, Open Approach (ICD-10-PCS; 2018-07-03)
PROC: 0XQMXZZ Repair Left Thumb, External Approach (ICD-10-PCS; 2018-07-03)
PROC: 0PSV04Z Reposition Left Finger Phalanx with Internal Fixation Device, Open Approach (ICD-10-PCS; 2018-07-03)
PROC: 0XQTXZZ Repair Left Ring Finger, External Approach (ICD-10-PCS; 2018-07-03)
PROC: 0XQRXZZ Repair Left Middle Finger, External Approach (ICD-10-PCS; 2018-07-03)
PROC: 01Q60ZZ Repair Radial Nerve, Open Approach (ICD-10-PCS; 2018-07-03)
PROC: 01Q40ZZ Repair Ulnar Nerve, Open Approach (ICD-10-PCS; 2018-07-03)
DX: S61.012A Laceration without foreign body of left thumb without damage to nail, initial encounter (principal); S66.121A Laceration of flexor muscle, fascia and tendon of left index finger at wrist and hand level, initial encounter; I47.1 Supraventricular tachycardia; I24.8 Other forms of acute ischemic heart disease; D62 Acute posthemorrhagic anemia; C90.00 Multiple myeloma not having achieved remission; S62.611A Displaced fracture of proximal phalanx of left index finger, initial encounter for closed fracture; S61.412A Laceration without foreign body of left hand, initial encounter; S64.22XA Injury of radial nerve at wrist and hand level of left arm, initial encounter; S64.02XA Injury of ulnar nerve at wrist and hand level of left arm, initial encounter; W31.2XXA Contact with powered woodworking and forming machines, initial encounter; S61.211A Laceration without foreign body of left index finger without damage to nail, initial encounter; S61.213A Laceration without foreign body of left middle finger without damage to nail, initial encounter; S61.215A Laceration without foreign body of left ring finger without damage to nail, initial encounter; E88.09 Other disorders of plasma-protein metabolism, not elsewhere classified; N40.0 Benign prostatic hyperplasia without lower urinary tract symptoms; E11.9 Type 2 diabetes mellitus without complications; E78.5 Hyperlipidemia, unspecified; I10 Essential (primary) hypertension; D53.9 Nutritional anemia, unspecified
CPT/HCPCS: 36415; 36416; 36430; 76001; 80048; 80053; 82553; 83880; 84439; 84443; 84484; 85025; 86850; 86900; 86901; 90471; 90670; 93005; 93010; 93306; A4216; C1713; G0009; J0282; J1160; J1644; J2001; J2250; J2370; J2795; J3010; J3490; J7070; P9016; S0020